=== PATIENT | male | born 1990 | race Caucasian/White ===

== ENCOUNTER 2023-03-01 08:41 | Day surgery (SDC) | payer BC ==
[2023-02-27 15:06] LABS: BASOPHILS % (AUTO) 0.3 % (0-1); EOSINOPHILS # (AUTO) 0.2 X10'3 (0-0.9); EOSINOPHILS % (AUTO) 2.3 % (0-6); LYMPHOCYTES # (AUTO) 2.1 X10'3 (1.1-4.8); LYMPHOCYTES % (AUTO) 27.7 % (21-51); MEAN CORPUSCULAR HEMOGLOBIN 27.6 PG (27.0-31.0); MEAN CORPUSCULAR HGB CONC 33.5 g/dL (33.0-36.5); MEAN CORPUSCULAR VOLUME 82.6 FL (78-98); MEAN PLATELET VOLUME 7.4 FL (7.4-10.4); MONOCYTES # (AUTO) 0.5 X10'3 (0-0.9); MONOCYTES % (AUTO) 6.9 % (2-12); NEUTROPHILS # (AUTO) 4.8 X10'3 (1.8-7.7); NEUTROPHILS % (AUTO) 62.8 % (42-75); PRE OP HEMATOCRIT 42.7 % (42.0-52.0); PRE OP HEMOGLOBIN 14.3 g/dL (14.0-17.9); PRE OP PLATELET COUNT 274 X10'3 (140-440); PRE OP WHITE BLOOD COUNT 7.6 10'3 (4.8-10.8); RED BLOOD COUNT 5.17 X10'6 (4.70-6.10); RED CELL DISTRIBUTION WIDTH 15.8 % (11.5-14.5)
[2023-02-27 15:22] LABS: ALBUMIN 3.8 G/DL (3.4-5.0); ALKALINE PHOSPHATASE 108 IU/L (46-116); BLOOD UREA NITROGEN 8 MG/DL (7-18); BUN/CREATININE RATIO 10.3 (10.0-20.0); CALCIUM 8.8 MG/DL (8.5-10.1); CHLORIDE 104 MMOL/L (99-107); CREATININE 0.78 MG/DL (0.60-1.10); PRE OP ALT 33 U/L (30-65); PRE OP ANION GAP 10 (8-16); PRE OP AST 23 U/L (10-37); PRE OP BILIRUB, TOTAL 0.6 MG/DL (0.0-1.0); PRE OP GLUCOSE 80 MG/DL (70-104); PRE OP POTASSIUM 3.8 MMOL/L (3.4-5.1); PRE OP SODIUM 141 MMOL/L (135-145); TOTAL CARBON DIOXIDE 27.3 MMOL/L (24-32); TOTAL PROTEIN 7.5 G/DL (6.4-8.2); eGFR > 90 ML/MIN
[2023-03-01] VITALS (9 sets, daily range): BP systolic 94–125; BP diastolic 51–79; PULSE 57–72; RESP 10–24; TEMP 97.7; O2SAT 93–99
[~2023-03-01] VITALS: Ht 180.3 cm; Wt 106.4 kg
[~2023-03-01 08:41] MED LIST: ACET-2119 PO; MELA10TA3 PO; enalaprilat dihydrate 2.5mg/2ml vial IV PRN; famotidine 20mg tablet PO ONE; labetalol 20mg/4ml (5mg/ml) syringe IV PRN; meperidine/PF 25mg/ml syringe IV PRN; morphine 2 MG/ML inj. syringe IV PRN; morphine 4 MG/ML inj SYRINge IV PRN; ondansetron/PF 4mg/2ml inj IV PRN; proCHLORperazine 10 MG/2 ml inj IV PRN; ringers solution, lacted 1,000 ML IV SCH; vancomycin 1,500 MG in NS 300ml IV soln IV ONE
[2023-03-01] MEDS ORDERED: fentaNYL/PF 50MCG/1 ML 2ML syringe ONE (10:01)
[2023-03-01] MEDS ORDERED: midazolam 1 mg/ML 2ml injection ONE (10:02)
[2023-03-01] MEDS ORDERED: propofol inj 20 ML IV ONE (10:02)
[2023-03-01] MEDS ORDERED: meperidine/PF 25mg/ml syringe ONE (10:02)
[2023-03-01] MEDS ORDERED: LIDOcaine 2% (20mg/ml) 5ml vial ONE (10:02)
[2023-03-01] MEDS ORDERED: acetaminophen 1,000mg/100ml IV 100 ML IV ONE (10:08)
[2023-03-01] MEDS ORDERED: cefazolin 2gm/D5W 100mL 100 ML IV ONE (10:10)
[2023-03-01] MEDS ORDERED: LIDOcaine 1% (10mg/ml)w/preservative inj. 20ml MDV ONE (10:17)
[2023-03-01] MEDS ORDERED: BUPIVAcaine/PF 2.5mg/ml (0.25%) 10ml vial ONE (10:18)
[2023-03-01] MEDS ORDERED: LIDOcaine 1% 30ml preserv. free vial ONE ×2 (10:19→10:20)
[2023-03-01] MEDS ORDERED: dexamethasone sod phosphate 10mg/ml inj ONE (10:32)
[2023-03-01] MEDS ORDERED: sevoflurane 250ml liquid IH ONE (10:32)
[2023-03-01] MEDS ORDERED: glycopyrrolate 0.2mg/ml inj ONE (10:32)
[2023-03-01] MEDS ORDERED: ondansetron/PF 4mg/2ml inj ONE (10:32)
[2023-03-01] MEDS ORDERED: BUPIVAcaine/PF 2.5 mg/ml (0.25%) 30ml vial IJ ONE (10:40)
[2023-03-01] MEDS ORDERED: LIDOcaine 1% 30ml preserv. free vial IJ ONE (10:40)
[2023-03-01] MEDS ORDERED: BUPIVAcaine 2.5mg/ml inj 50ml vial (contains preservative) ONE (10:46)
[2023-03-01] MEDS ORDERED: BUPIVACAINE liposomal/PF 13.3 MG/ML vial IM ONE (10:47)
[2023-03-01] MEDS ORDERED: rocuronium 10mg/ml inj IV ONE (10:49)
[2023-03-01] MEDS ORDERED: oxyCODONE/APAP 5-325mg tablet PO PRN (12:10)
== END 2023-03-01 13:05 | disposition home or self-care (01) ==
LOC: PAS 08:41
PROVIDERS: ATTEND Surgery
DX: K42.0 Umbilical hernia with obstruction, without gangrene (principal); E66.9 Obesity, unspecified; Z68.32 Body mass index [BMI] 32.0-32.9, adult; Z88.0 Allergy status to penicillin; Z79.899 Other long term (current) drug therapy
CPT/HCPCS: 36415; 49592; 64488; 80053; 82948; 85025; C1781; C9290; J0131; J2175; J2250; J2704; J3010; J3490; J7030; J7120; Z7506; Z7508; Z7512; A4215; A4618; J0690; J1100; J2405; J3370